=== PATIENT | female | born 1950 | race African-American/Black ===

== ENCOUNTER → 2017-12-19 | Outpatient (CLI) | payer MEDICARE, OTHER ==
[~2017-12-19] VITALS: Ht 152.4 cm; Wt 94.3 kg
[~2017-12-19] MED LIST: ASCO500T20 GT; BRIM5DRO OP; CA C1TAB26 PO; CALC1CAP21 PO; CATHETER FLUSH 10 ML SYR IV PRN; CHOL200012 PO; COD1CAPS16 PO; CRAN1POW2 MC; CYCL10TA9 PO; DEXL60CA5 PO; GARL1500 PO; LATA2.5D5 OP; MECL25TA56 PO; MELA1TAB11 PO; MELO-195 PO; MULT-974 PO; MULT1CAP27 PO; NF-LOVAZAC PO; OMEG1CAP PO; POTA8CAP9 PO; SIMV20TA3 PO; VITA200C53 PO; [UNRECOGNIZED DRUG - CODE] PO; [UNRECOGNIZED DRUG - CODE] PO
[2017-12-19 10:15] VITALS: BP 214/100
--- NOTE | 2017-12-19 12:37 | STRESS TEST ---
DATE OF SERVICE: 12/19/2017 AN EXERCISE MYOVIEW STRESS TEST REPORT REFERRING PHYSICIAN: Dr. Gabe Romero and Rosalinda Reina. Baseline heart rate is 76. Baseline blood pressure is 133/84. Baseline EKG is sinus rhythm with right bundle branch block. In summary, the patient was injected with 9.8 mCi of technetium-99 Myoview and the resting images were obtained. Then, the patient started exercising with a baseline heart rate, blood pressure and EKG mentioned above. The patient had occasional PVCs and was able to exercise for a total of 3 minutes 30 seconds on standard Javon protocol. With peak exercise level, EKG was showing minimal nondiagnostic changes. Blood pressure at peak was 214/100. During recovery, heart rate and blood pressure returned to baseline. EKG returned to baseline. The resting and stress images were reviewed and compared in the short axis, horizontal long axis and vertical long axis views. Review of the images showed breast attenuation with typical female pattern. No significant ischemia or infarction was seen. SSS is 2, SDS 2, TID value 1.0. On the gated images, the left ventricle appeared to be in normal size with normal contractility. Calculated ejection fraction is 52%. CONCLUSION: 1. Poor exercise tolerance, a total of 3 minutes 30 seconds on standard Javon protocol, total of 5.2 METS achieving 89% of maximum expected heart rate. 2. Severe hypertensive response to exercise returned to baseline during recovery. 3. Breast attenuation affecting the quality of the images with no significant ischemia or infarction on SPECT images. 4. Normal left ventricular size with normal contractility, calculated ejection fraction of 52%. Job ID: [id number] DocumentID: [id number] Dictated Date: 12/19/2017 12:24:57 Unix Engineer Date: 12/19/2017 12:36:49 Dictated By: CHRISSY DON MD
== END ==
LOC: CARD 08:39
PROVIDERS: ATTEND Internal Medicine Cardiovascular Disease
DX: R07.9 Chest pain, unspecified (principal); R06.09 Other forms of dyspnea; I10 Essential (primary) hypertension; E78.5 Hyperlipidemia, unspecified; I45.10 Unspecified right bundle-branch block
CPT/HCPCS: 78452; 93017

== ENCOUNTER → 2019-04-16 | Outpatient (CLI) | payer MEDICARE, OTHER ==
[~2019-04-16] VITALS: Ht 152 cm; Wt 96.0 kg
[2019-04-16 11:52] VITALS: BP 181/86
== END ==
LOC: CARD 09:54
PROVIDERS: ATTEND Internal Medicine Cardiovascular Disease
DX: I08.0 Rheumatic disorders of both mitral and aortic valves (principal); K21.9 Gastro-esophageal reflux disease without esophagitis; I10 Essential (primary) hypertension; E78.5 Hyperlipidemia, unspecified
CPT/HCPCS: 78452; 93017; 93306

== ENCOUNTER 2019-05-09 12:07 | Day surgery (SDC) | payer MEDICARE ==
[2019-05-09] VITALS (8 sets, daily range): BP systolic 147–204; BP diastolic 79–107
[~2019-05-09] VITALS: Ht 152 cm; Wt 96.0 kg
[~2019-05-09 12:07] MED LIST changes: -CATHETER FLUSH 10 ML SYR IV PRN
[2019-05-09] MEDS ORDERED: HEParin (CATH LAB) 2,000 ML IV ONE (12:11)
[2019-05-09] MEDS ORDERED: NS IV 1000 ML 1,000 ML ONE (12:11)
[2019-05-09] MEDS ORDERED: LIDOCAINE 1% INJ 20 ML 20 ML VIAL ONE (12:11)
[2019-05-09] MEDS ORDERED: NS IV 1000 ML 1,000 ML IV SCH ×2 (12:17→14:35)
[2019-05-09 12:53] LABS: HEMOGLOBIN 14.3 G/DL (11.5-16.0); MEAN PLATELET VOLUME 10.5 FL (7.4-10.4); RED CELL DISTRIBUTION WIDTH 13.9 % (10.0-14.5); WHITE BLOOD COUNT 8.8 10^3/uL (4.3-11.0)
[2019-05-09 12:59] LABS: PROTHROMBIN TIME PATIENT 13.3 SEC (12.2-14.7)
[2019-05-09 13:08] LABS: ALANINE AMINOTRANSFERASE 16 U/L (0-55); ALBUMIN 4.6 GM/DL (3.2-4.5); ALKALINE PHOSPHATASE 91 U/L (40-136); BILIRUBIN,TOTAL 0.6 MG/DL (0.1-1.0); BUN/CREATININE RATIO 15; CARBON DIOXIDE 29 MMOL/L (21-32); CHLORIDE 101 MMOL/L (98-107); CHOLESTEROL 151 MG/DL (< 200); CREATININE SERUM 0.91 MG/DL (0.60-1.30); GFR ESTIMATED > 60; GLUCOSE 97 MG/DL (70-105); HDL CHOLESTEROL 44 MG/DL (40-60); SODIUM 138 MMOL/L (135-145); TOTAL PROTEIN 8.2 GM/DL (6.4-8.2); TRIGLYCERIDES 116 MG/DL (<150); VLDL CHOLESTEROL 23 MG/DL (5-40)
[2019-05-09] MEDS ORDERED: SIME125T PO (13:34)
[2019-05-09] MEDS ORDERED: DEXL60CA PO (13:34)
[2019-05-09] MEDS ORDERED: CHOL200025 PO (13:34)
[2019-05-09] MEDS ORDERED: SITA100T12 PO (13:34)
[2019-05-09] MEDS ORDERED: MOME45CR3 TP (13:34)
[2019-05-09] MEDS ORDERED: BACL10TA PO (13:34)
[2019-05-09] MEDS ORDERED: ACET-2267 PO (13:34)
[2019-05-09] MEDS ORDERED: MELO15TA39 PO (13:34)
[2019-05-09] MEDS ORDERED: SIMV40TA25 PO (13:34)
[2019-05-09] MEDS ORDERED: BRIM5DRO OU (13:34)
[2019-05-09] MEDS ORDERED: LIDO73LI TP (13:34)
[2019-05-09] MEDS ORDERED: METO-333 PO (13:34)
[2019-05-09] MEDS ORDERED: GARL10002 PO (13:34)
[2019-05-09] MEDS ORDERED: CYAN100T3 PO (13:34)
[2019-05-09] MEDS ORDERED: CALC-68 PO (13:34)
--- NOTE | 2019-05-09 13:45 | NUR ---
SPOKE WITH THE PT (SHE DID NOT HAVE HER MEDS- SHE THINKS THEY ARE IN THE CAR) SPOKE WITH ABHILASH AND WENT THRU THE MEDICATION LIST ON HER FLIGHT TEST SHOP MECHANIC CHART TO COMPLETE THE MED REC. THE FOLLOWING ARE FILL DATES: 01-03-2019 MOMETASONE CRM #1/PRN 02-01-2019 JANUVIA 100MG #90/90DS 02-09-2019 MELOXICAM 15MG #90/90DS 03-28-2019 COMBIGAN DROPS #15 ML BTL/75DS 04-03-2019 METOPROLOL TART 25MG #180/90DS 04-03-2019 SIMVASTATIN 40MG #90/90DS 04-21-2019 DEXILANT 60MG #90/90DS 05-02-2019 BACLOFEN 10MG #30/30DS OTC MEDS: GARLIC VIT B12 GAS-X VIT D CALCIUM W/ VIT D TYLENOL ASPERCREME W/ LIDOCAINE CR
[2019-05-09] MEDS ORDERED: HEParin 1000 UNIT/ML (10ML VIAL) FOR BOLUS ONE (13:49)
[2019-05-09] MEDS ORDERED: VERAPAMIL 5 MG/2 ML (CALAN) VIAL IV ONE (13:49)
[2019-05-09] MEDS ORDERED: MIDAZOLAM 5 MG/5 ML (VERSED) VIAL ONE (13:49)
[2019-05-09] MEDS ORDERED: fentaNYL INJECTION 100 MCG/2 ML AMP ONE (13:49)
[2019-05-09] MEDS ORDERED: NITRO DRIP 25000 MCG/D5W 250 ML IV ONE (13:50)
--- NOTE | 2019-05-09 13:55 | Cardiac Procedure Note-CS/ASA ---
Pre-Procedure Note Pre-Op Procedure Note H&P Reviewed The H&P was reviewed, patient examined and no changes noted. Date H&P Reviewed: May 09, 2019 Time H&P Reviewed: 13:54 Conscious Sedation Pre-Proced Time 13:54 ASA Score 3 For ASA 3 and 4: Consider anesthesia and medical clearance. Also, for patients with a history of failed moderate sedation consider anesthesia. Airway Lungs Heart ASA score ASA 1: a normal healthy patient ASA 2: a patient with a mild systemic disease (mid diabetes, controlled hypertension, obesity x ASA 3: a patient with a severe systemic disease that limits activity (angina, COPD, prior Myocardial infarction) ASA 4: a patient with an incapacitating disease that is a constant threat to life (CHF, renal failure) ASA 5: a moribund patient not expected to survive 24 hrs. (ruptured aneurysm) ASA 6: a declared brain- patient whose organs are being harvested. For emergent operations, add the letter E after the classification Mallampati Classification Grade 3 Sedation Plan Analgesia, Amnesia, Plan communicated to team members, Discussed options with patient/fam, Discussed risks with patient/fam The patient is an appropriate candidate to undergo the planned procedure, sedation, and anesthesia. The patient immediately re-assessed prior to indication. CHRISSY DON MD May 09, 2019 13:55
--- NOTE | 2019-05-09 14:03 | Diagnostic Imaging Report ---
CHEST 1 VIEW, AP/PA ONLY Indication: Preprocedural workup for heart catheterization. Comparison: None available. Findings: No focal airspace disease in the visualized lungs. Please note that the posterior lower lobes are poorly evaluated by portable radiography. No pleural effusion or pneumothorax. Normal cardiomediastinal silhouette. Impression: 1. No acute cardiopulmonary process by portable radiography. Dictated by: Dictated on workstation # [id number]
--- NOTE | 2019-05-09 14:36 | Discharge Inst-Post CATH ---
Discharge Inst-CATH/EP Problems Reviewed?: Yes Post Cardiac Cath/EP D/C Inst Follow Up/Plan appointment with Dr. Tate's office in 4 weeks <b>CARDIAC CATH/EP PROCEDURE DISCHARGE INSTRUCTIONS</b> ACTIVITY * Go Home directly and rest. * Limit activity of the leg (or wrist if it was used) for 7 days including aerobics, swimming, jogging, bicycling, etc. * Restrict stair-climbing for 7 days if possible, if not, climb up with your non-cath leg, then bring together on the same step. * Avoid lifting, pushing, pulling or excessive movement of the affected extremity for 7 days. * Customary sexual activity may be resumed after 2 days-use caution not to use a position that strains or causes pain to the affected extremity. * No driving for 24 hours. * NO SMOKING. * Avoid straining for bowel movements for 7 days. * Gentle walking on level ground is allowed. * Returning to work will depend on the type of procedure and the results. Your doctor will discuss this with you. CALL YOUR DOCTOR FOR ANY OF THE FOLLOWING: *If bleeding from the puncture site occurs- Apply gentle pressure to site with clean cloth and call your doctor or EMS. * If a knot or lump forms under the skin, increases in size, or causes pain. * If bruising appears to be worsening or moving further down your leg instead of disappearing. * Temperature above 101 F. CARE OF YOUR GROIN INCISION; * Bruising or purple discoloration of the skin near the puncture site is common. * You may shower only, no bathtub bathing for 5 days. Be careful to avoid slipping as your leg may feel stiff. * If a closure device was used on your femoral artery, please see the attached guide regarding care of the device and your leg. * Leave dressing on FOR 24 hours. CARE OF YOUR WRIST INCISION; * Bruising or purple discoloration of the skin near the puncture site is common. * You may shower. * DO NOT submerge wrist. * Leave dressing on FOR 24 hours. CHRISSY TATE MD May 09, 2019 14:36
--- NOTE | 2019-05-09 14:39 | Cardiac Cath Report ---
Cardiac Cath Report Physician (s)/Cotton Ginner (s) Physician CHRISSY DON MD Pre-Procedure Diagnosis Pre-Procedure Diagnosis: coronary artery disease Post-Procedure Note Procedure Start Date: May 09, 2019 Name of Procedure: left heart catheterization Findings/Procedure Note PROCEDURE NOTE: 68-year-old lady with history of hypertension, hyperlipidemia, has been having chest pain, had an abnormal stress test, scheduled for cardiac catheterization possible PTCA After explaining the procedure to the patient, all pros and cons were explained, all questions were answered. The patient signed the consent and then she was placed on the cardiac catheterization laboratory. Groin was prepped SL fashion local anesthesia was used. Sheath placed in the right radial artery, [place] catheter was advanced to the left ventricular cavity, pressure was measured, pullback LV to aorta was done then angiogram of the coronaries was done. At the end of the procedure the sheath was removed. vascular band was used FINDINGS: Hemodynamics LV 111/10, end-diastolic pressure of 10 Aorta 111/66 mean of 84, no significant gradient across the aortic valve ANATOMY: Left Main is free of obstructive disease Left Anterior Descending is tortuous with mild disease nonobstructive disease Left Circumflex has mild tortuosity with no significant structural disease Right Coronory Artery is dominant artery with mild disease nonobstructive disease LV Gram was not done, pressure was measured CONCLUSION: 1. Mild coronary artery disease nonobstructive disease 2. Normal left ventricular end-diastolic pressure DISCUSSION AND RECOMMENDATION: medical therapy is recommended no intervention is needed Anesthesia Type: Conscious Sedation Estimated blood loss (mL): 10 ml Contrast Amount: 40 ml Total Radiation Dose: 239 mGy Post-Procedure Diagnosis Post-operative diagnosis: chest pain Coronary artery disease Hypertension Hyperlipidemia CHRISSY DON MD May 09, 2019 14:39
--- NOTE | 2019-05-09 15:52 | CONSULTATION REPORT ---
DATE OF SERVICE: 05/09/2019 ATTENDING PRIMARY TECHNICAL SPECIALIST CYTOGENETICS: Rosalinda Reina APRN. CONSULTING PHYSICIAN: Dr. Tate. HISTORY OF PRESENT ILLNESS: The patient is a 68-year-old female who we have seen before in the past. She has had a longstanding history of gastroesophageal reflux disease and has been on different medications over the past. She is currently on Dexilant. She reports that she has had worsening reflux in the past few months which then radiated more towards a left-sided chest pain. She underwent a cardiac catheterization today, which did not show any coronary artery atherosclerosis. She reports that some spicy foods as well as spicy and greasy foods do cause her symptoms to become worse. She does not report any regurgitation as well as no hematemesis or coffee ground emesis. She has had an EGD done in the past; however, states that this was approximately 3 to 5 years ago. PAST MEDICAL HISTORY: Gastroesophageal reflux disease, hypertension, hypercholesterolemia, diabetes, degenerative joint disease. PAST SURGICAL HISTORY: Cardiac catheterization, bilateral shoulder repair, bilateral total knee arthroplasty, open cholecystectomy, total abdominal hysterectomy. ALLERGIES: PREDNISONE, ACETAMINOPHEN, HYDROCODONE. MEDICATIONS: Dexilant, meloxicam, metoprolol, mometasone, simvastatin, Januvia, baclofen. SOCIAL HISTORY: Negative smoke, social alcohol. FAMILY HISTORY: Mother, cerebral aneurysm. VITAL SIGNS: Stable, afebrile. REVIEW OF SYSTEMS: Well-nourished female currently in no acute distress. She is not experiencing any shortness of breath or difficulty breathing. No chest pain, palpitations or diaphoresis. Intermittent episodes of epigastric crampy pain as well as burning sensation. No coffee ground emesis. No hematemesis. Occasional episodes of constipation, no red blood per rectum, no dark tarry stools. No fever or chills, no recent inadvertent weight loss. All other review of systems are negative. PHYSICAL EXAMINATION: CHEST: Clear. Good breath sounds bilaterally. HEART: Regular, no murmurs. EXTREMITIES: No lower extremity edema. Negative Homans sign. HEENT: No scleral icterus. NECK: No cervical lymphadenopathy. ABDOMEN: Soft, nontender, nondistended. There is mild discomfort in the epigastric region upon deep palpation. No peritoneal signs. SKIN: Warm, dry. ASSESSMENT AND PLAN: A 68-year-old female with history of gastroesophageal reflux disease with worsening symptomatology. She just underwent a cardiac catheterization today, which did not show any coronary atherosclerosis and the most likely etiology of her chest discomfort is worsening reflux and this does warrant an EGD as an outpatient. She is instructed to proceed with the necessary lifestyle and diet accommodation including small and more frequent meals, avoidance of eating at night as well as head elevation while lying supine as well as avoidance of caffeinated beverages, spicy, greasy and acidic foods and to continue her Dexilant; however, she may call the office at any time to schedule an EGD. Job ID: [id number] DocumentID: [id number] Dictated Date: 05/09/2019 15:32:51 Cathead Operator Date: 05/09/2019 15:50:52 Dictated By: BE ORTIZ MD [facility]
== END 2019-05-09 18:15 | disposition home or self-care (01) ==
LOC: CATH 12:07
PROVIDERS: ATTEND Internal Medicine Cardiovascular Disease
DX: I25.10 Atherosclerotic heart disease of native coronary artery without angina pectoris (principal); I10 Essential (primary) hypertension; I08.1 Rheumatic disorders of both mitral and tricuspid valves; I45.10 Unspecified right bundle-branch block; I65.29 Occlusion and stenosis of unspecified carotid artery; E78.5 Hyperlipidemia, unspecified; R06.82 Tachypnea, not elsewhere classified; M06.9 Rheumatoid arthritis, unspecified; K21.9 Gastro-esophageal reflux disease without esophagitis; G47.00 Insomnia, unspecified; Z90.710 Acquired absence of both cervix and uterus; Z90.49 Acquired absence of other specified parts of digestive tract; Z88.8 Allergy status to other drugs, medicaments and biological substances; Z88.5 Allergy status to narcotic agent; Z91.018 Allergy to other foods; Z88.0 Allergy status to penicillin; Z79.899 Other long term (current) drug therapy; Z83.3 Family history of diabetes mellitus; Z82.3 Family history of stroke; Z80.9 Family history of malignant neoplasm, unspecified
CPT/HCPCS: 36415; 71045; 80053; 80061; 85027; 85610; 85730; 87081; 93458

== ENCOUNTER 2019-05-21 08:30 | Outpatient (CLI) | payer MEDICARE ==
[~2019-05-21] VITALS: Ht 152.4 cm; Wt 95.9 kg
[~2019-05-21 08:30] MED LIST changes: +ACET-2267 PO; +BACL10TA PO; +BRIM5DRO OU; +CALC-68 PO; +CHOL200025 PO; +CYAN100T3 PO; +DEXL60CA PO; +GARL10002 PO; +LIDO73LI TP; +MELO15TA39 PO; +METO-333 PO; +MOME45CR3 TP; +SIME125T PO; +SIMV40TA25 PO; +SITA100T12 PO
== END 2019-05-21 11:56 | disposition home or self-care (01) ==
LOC: PREOP 08:30
PROVIDERS: ATTEND Surgery
DX: Z01.818 Encounter for other preprocedural examination (principal)

== ENCOUNTER 2019-05-23 10:06 | Day surgery (SDC) | payer MEDICARE ==
[~2019-05-23] VITALS: Ht 152.4 cm; Wt 95.9 kg
[2019-05-23] VITALS (13 sets, daily range): BP systolic 113–152; BP diastolic 56–75
[2019-05-23] MEDS ORDERED: NS IV 500 ML 500 ML ONE (10:09)
--- NOTE | 2019-05-23 10:13 | Conscious Sedation/ASA ---
Conscious Sedation Pre-Proced Time 10:00 ASA Score 2 For ASA 3 and 4: Consider anesthesia and medical clearance. Also, for patients with a history of failed moderate sedation consider anesthesia. Airway Lungs Heart ASA score ASA 1: a normal healthy patient ASA 2: a patient with a mild systemic disease (mid diabetes, controlled hypertension, obesity ASA 3: a patient with a severe systemic disease that limits activity (angina, COPD, prior Myocardial infarction) ASA 4: a patient with an incapacitating disease that is a constant threat to life (CHF, renal failure) ASA 5: a moribund patient not expected to survive 24 hrs. (ruptured aneurysm) ASA 6: a declared brain- patient whose organs are being harvested. For emergent operations, add the letter E after the classification Mallampati Classification Grade 2 Sedation Plan Analgesia, Amnesia, Plan communicated to team members, Discussed options with patient/fam, Discussed risks with patient/fam The patient is an appropriate candidate to undergo the planned procedure, sedation, and anesthesia. The patient immediately re-assessed prior to indication. BE ORTIZ MD May 23, 2019 10:13
--- NOTE | 2019-05-23 10:14 | Progress Note-Pre Operative ---
Pre-Operative Progress Note H&P Reviewed The H&P was reviewed, patient examined and no changes noted. Date Seen by Provider: May 23, 2019 Time Seen by Provider: 10:00 Date H&P Reviewed: May 23, 2019 Time H&P Reviewed: 10:00 Pre-Operative Diagnosis: BE JARAMILLO MD May 23, 2019 10:14
[2019-05-23] MEDS ORDERED: ONDANSETRON 4 MG/2 ML (SDV) Z0FRAN IVP PRN (10:15)
[2019-05-23] MEDS ORDERED: morphine INJ 10 MG/ML 1ML (SYR OR VIAL) IVP PRN ×2 (10:15)
--- NOTE | 2019-05-23 10:15 | Discharge Inst-Surgical ---
D/C Lap Instructions-DIANA Follow Up Activity as tolerated High Fiber Diet 25g or more per day Avoid Alcohol, Caffeine, Spicy Fate and Acid foods. Drink 64 fluid oz or more of fluids per day. Symptoms to Report: Fever over 101 degree F, Nausea/Vomiting If any problems/questions: Contact your physician or go to Emergency Room BE ORTIZ MD May 23, 2019 10:15
[2019-05-23] MEDS ORDERED: NS IV 500 ML 500 ML IV PRN (10:16)
[2019-05-23] MEDS ORDERED: fentaNYL INJECTION 100 MCG/2 ML AMP IVP ONE (10:30)
[2019-05-23] MEDS ORDERED: HURRICAINE EXT TUBE (BENZOCAINE) XX PRN (10:30)
[2019-05-23] MEDS ORDERED: LIDOCAINE JELLY 2% 6 ML SYRINGE MM PRN (10:30)
[2019-05-23] MEDS ORDERED: LIDOCAINE JELLY 2% 6 ML SYRINGE ONE (10:45)
[2019-05-23] MEDS ORDERED: MIDAZOLAM 5 MG/5 ML (VERSED) VIAL ONE ×2 (10:45)
[2019-05-23] MEDS ORDERED: fentaNYL INJECTION 100 MCG/2 ML AMP ONE (10:45)
[2019-05-23] MEDS ORDERED: HURRICAINE EXT TUBE (BENZOCAINE) ONE (10:45)
[2019-05-23] MEDS: MIDAZOLAM 5 MG/5 ML (VERSED) VIAL IV PRN ×2 (10:50→10:52)
--- NOTE | 2019-05-23 11:25 | Progress Note-Post Operative ---
Post-Operative Progess Note Surgeon (s)/Handle Bar Assembler (s) Surgeon BE ORTIZ MD Handle Bar Assembler: none Pre-Operative Diagnosis GERD Post-Operative Diagnosis reflux esophagitis(stage 2), mild-mod HH(2.5cm), mild gastritis. Procedure & Operative Findings Date of Procedure 05/23/19 Procedure Performed/Findings EGD with bx. Anesthesia Type cs Estimated Blood Loss Estimated blood loss (mL): minimal Specimens/Packing Specimens Removed none BE ORTIZ MD May 23, 2019 11:25
--- NOTE | 2019-05-23 16:05 | OPERATIVE REPORT ---
DATE OF SERVICE: 05/23/2019 ATTENDING PRIMARY SENIOR BI DEVELOPER: Rosalinda Reina APRN. PREOPERATIVE DIAGNOSIS: Persistent gastroesophageal reflux disease. POSTOPERATIVE DIAGNOSES: Reflux esophagitis stage II, small to moderate size hiatal hernia approximately 2.5 cm in size, mild gastritis, normal duodenum. PROCEDURE: EGD with biopsy. SURGEON: Be Ortiz MD. ANESTHESIA: Conscious sedation. ESTIMATED BLOOD LOSS: Minimal. FINDINGS: Reflux esophagitis stage II, small to moderate size hiatal hernia approximately 2.5 cm in size, mild gastritis, normal duodenum. DISPOSITION: The patient tolerated the procedure well. INDICATIONS: The patient is a 68-year-old female who has had gastroesophageal reflux disease for many years. She reports that as she has grown older, this has become more significant and more severe in nature. She reports an epigastric burning sensation as well as crampy pain and also does have some regurgitation on occasion. She is currently on Dexilant 60 mg daily. DESCRIPTION OF PROCEDURE: The patient was brought to the endoscopy suite, laid in the left lateral decubitus position. After adequate IV pain and sedative medications and conscious sedation anesthesia, the mouthpiece was applied. The endoscope was then placed in the mouth, visualizing the pharynx and hypopharyngeal region. Vocal cords, epiglottis and vallecula identified and appeared to be normal. The endoscope was then gently intubated at esophageal opening and esophagus insufflated. The endoscope was then advanced through the first, second and third portion of the esophagus at the level of the GE junction, a reflux esophagitis stage II identified. There were no ulcers or strictures in this region. A biopsy was taken with forceps with visualization of good hemostasis. The endoscope was then advanced in the stomach and endoscope retroflexed, visualizing a small to moderate size hiatal hernia approximately 2.5 cm in size. There was a mild gastritis noted. No formal ulcerations, polyps, or any neoplasms. A biopsy was taken of the stomach antrum to rule out H. pylori with visualization of good hemostasis. The endoscope was then advanced to the pylorus and the first and second portion of the duodenum with no distal obstructions. The endoscope was then slowly withdrawn while taking a second look and suctioning of residual air with no additional findings. The patient tolerated the procedure well. We will recommend the necessary lifestyle and diet accommodation for her reflux esophagitis as well as a hiatal hernia, which would encompass small and more frequent meals, avoidance of eating at night as well as head elevation while lying supine. She does have a hiatal hernia, which is exacerbating her symptoms; however, due to her medical comorbidities as well as her body mass index, this would be contraindicated and the recommendation would be to proceed with a bariatric surgical procedure as well as simultaneous repair of the hiatal hernia for superior results and durability. For now, we will recommend any form of regularly scheduled diet and exercise regimen to promote weight loss and maintenance. We will also have her continue with small and more frequent meals, avoidance of eating at night as well as head elevation while lying supine. We will also have her continue with her Dexilant. Job ID: [id number] DocumentID: [id number] Dictated Date: 05/23/2019 11:18:18 Assembly Loader Date: 05/23/2019 16:04:38 Dictated By: BE ORTIZ MD MTDD
== END 2019-05-23 12:14 | disposition home or self-care (01) ==
LOC: ENDO 10:06
PROVIDERS: ATTEND Surgery
DX: K21.0 Gastro-esophageal reflux disease with esophagitis (principal); K44.9 Diaphragmatic hernia without obstruction or gangrene; K29.70 Gastritis, unspecified, without bleeding; K31.89 Other diseases of stomach and duodenum; I10 Essential (primary) hypertension; E78.00 Pure hypercholesterolemia, unspecified; E11.9 Type 2 diabetes mellitus without complications; M19.91 Primary osteoarthritis, unspecified site; Z79.84 Long term (current) use of oral hypoglycemic drugs; Z79.899 Other long term (current) drug therapy
CPT/HCPCS: 82962

== ENCOUNTER 2019-12-13 20:32 | Outpatient (CLI) | payer MEDICARE ==
[~2019-12-13 20:32] MED LIST changes: -CYAN100T3 PO; +CYAN100T37 PO
== END 2019-12-14 06:53 | disposition home or self-care (01) ==
LOC: SLEEP 20:32
PROVIDERS: ATTEND Nurse Practitioner Family
DX: G47.10 Hypersomnia, unspecified (principal); I25.10 Atherosclerotic heart disease of native coronary artery without angina pectoris; K21.9 Gastro-esophageal reflux disease without esophagitis; I10 Essential (primary) hypertension; E78.5 Hyperlipidemia, unspecified; Z87.39 Personal history of other diseases of the musculoskeletal system and connective tissue
CPT/HCPCS: 95811